=== PATIENT | female | born 1945 | race Caucasian/White ===

== ENCOUNTER 2020-08-20 06:05 | Day surgery (SDC) | payer OTHER, SELFPAY ==
[~2020-08-20] VITALS: Ht 162.6 cm; Wt 111.1 kg
[2020-08-20] MEDS ORDERED: GLYCOPYRROLATE 0.2 MG/ML VIAL ONE (07:08)
[2020-08-20] MEDS ORDERED: MIDAZOLAM HCL 5 MG/5 ML VIAL ONE (07:26)
[2020-08-20] MEDS: MEPERIDINE HCL/PF 100 MG/ML AMP ONE ×2 (07:48→07:50)
[2020-08-20] MEDS: MIDAZOLAM HCL 5 MG/5 ML VIAL ONE ×4 (07:48→07:52)
[2020-08-20] MEDS ORDERED: SIMETHICONE 40 MG/0.6 ML ML ONE (07:52)
[2020-08-20 12:21] VITALS: BP_SYST 116
== END 2020-08-20 09:06 | disposition home or self-care (01) ==
LOC: SDS 06:05 → SMU 06:05 → SDS 09:06
PROVIDERS: ATTEND Colon & Rectal Surgery
DX: R19.5 Other fecal abnormalities (principal); D12.3 Benign neoplasm of transverse colon; K57.30 Diverticulosis of large intestine without perforation or abscess without bleeding; J45.909 Unspecified asthma, uncomplicated; I48.19 Other persistent atrial fibrillation; I12.9 Hypertensive chronic kidney disease with stage 1 through stage 4 chronic kidney disease, or unspecified chronic kidney disease; N18.30 Chronic kidney disease, stage 3 unspecified; E78.5 Hyperlipidemia, unspecified; F32.9 Major depressive disorder, single episode, unspecified; E66.01 Morbid (severe) obesity due to excess calories; Z90.49 Acquired absence of other specified parts of digestive tract; Z98.84 Bariatric surgery status; Z90.710 Acquired absence of both cervix and uterus; Z98.890 Other specified postprocedural states; Z79.899 Other long term (current) drug therapy; Z20.828 Contact with and (suspected) exposure to other viral communicable diseases
CPT/HCPCS: 45380; 45385; 88305; 99152; 99153; G0378; J2175; J2250; U0003; J3490